=== PATIENT | male | born 1985 | race Caucasian/White ===

== ENCOUNTER 2023-04-01 09:32 | Outpatient (AMB) | payer BC, SELFPAY ==
--- NOTE | 2023-04-01 09:35 | MHC.OFFWIV ---
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 Denies ear ache, sore throat, headaches. Denies nausea, vomiting, diarrhea Mother has been sick with same Patient requesting work note PFSH Social History Patient Tobacco Use Status: Never used Tobacco Review of Systems Const All systems reviewed & are unremarkable except as noted in HPI and below Physical Exam Vital Signs: Last Vital Signs Temp 97.6 F 04/01/23 09:57 Pulse 88 04/01/23 09:57 BP 124/86 04/01/23 09:57 Pulse Ox 99 04/01/23 09:57 Oxygen Delivery Method Room Air 04/01/23 09:57 BMI result Body Mass Index 34.6 General: awake, alert, oriented. Answers questions appropriately. Fully engaged in examination. Skin: warm, dry, intact HEENT: TMs intact bilaterally, without erythema or exudate. Posterior pharynx without erythema or exudate. Sclera without icterus or injection. Cardiac: External chest normal in appearance. Respiratory: +cough. LSCTAB. Abdomen: without gross distension. Neurological: Oriented to person, place, time and situation. Thought process intact. Psychiatric: Appropriate mood and affect. Good judgment and insight. Assessment & Plan Assessment & Plan (1) URI (upper respiratory infection): Code(s): J06.9 - Acute upper respiratory infection, unspecified Plan URI, no abx warranted. Benzonatate 100mg po bid as needed Rest, drink plenty of fluids, tylenol or motrin as needed. Work note provided Follow up with pcp or in clinic for any new or worsening symptoms. Go to ER for shortness of breath, chest pain, palpitations, weakness, dizziness. Medications: New benzonatate 100 mg PO BID PRN 20 caps 0RF cough Coding Level of Care Code New Pt Level 4 (58088) Diagnoses URI (upper respiratory infection) J06.9
[2023-04-01 09:57] VITALS: BP 124/86; PULSE 88; TEMP 36.4; O2SAT 99; BMI 34.6
== END 2023-04-01 10:59 | disposition home or self-care (01) ==
PROVIDERS: PCP Nurse Practitioner Family; Visit Provider Registered Nurse Emergency
DX: J06.9 Acute upper respiratory infection, unspecified (principal)
CPT/HCPCS: 99204

== ENCOUNTER 2023-04-09 08:07 | Outpatient (AMB) | payer BC, SELFPAY ==
[2023-04-09 08:26] VITALS: BP 120/80; PULSE 103; TEMP 36.3; O2SAT 97; BMI 34.3
--- NOTE | 2023-04-09 08:26 | MHC.OFFWIV ---
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 He was last seen 8 days ago in the walk-in clinic for upper respiratory illness symptoms, which include sore throat, cough, headache. He was around his mother who was sick as well. He was given benzonatate. Today he has similar symptoms but states he developed a fever this morning. He has not taken any medication for relief. Denies chest pain, shortness a breath, dizziness, numbness, nausea, vomiting, diarrhea. Will obtain upper respiratory swab. Patient has been instructed to utilize [id number]-[id number] medication for symptom relief. [facility] Social History Patient Tobacco Use Status: Never used Tobacco Review of Systems Const Details: Constitutional : No Weight loss, Admits Fever, No Chills, Admits Fatigue, No Malaise ENT/Mouth : Admits sore throat, No Rhinorrhea Eyes: No Eye Pain, No Swelling, No Redness Cardiovascular : No Chest Pain, No SOB, No Dyspnea on Exertion, No Orthopnea, No Edema, No Palpitations Respiratory : Admits Cough, No Sputum, No Wheezing Gastrointestinal : No Nausea, No Vomiting, No Diarrhea, No Constipation, No abdominal Pain, No Hematochezia, No Melena Neuro : No Weakness, No Numbness, No Dizziness, No Headache All other systems reviewed and are negative Physical Exam Vital Signs: Last Vital Signs Temp 97.4 F 04/09/23 08:26 Pulse 103 H 04/09/23 08:26 BP 120/80 04/09/23 08:26 Pulse Ox 97 04/09/23 08:26 Oxygen Delivery Method Room Air 04/09/23 08:26 BMI result Body Mass Index 34.3 Const Other: Appearance: Alert.? Oriented X3.? No acute distress.? Eyes: Pupils equal, round and reactive to light.? ENT: Pharynx normal.?TM intact and pearly gregg. Neck: Normal inspection.? Neck supple.?Full ROM CVS: Normal heart rate and rhythm.? Pulses normal.? Respiratory: No respiratory distress.? Breath sounds normal.? Neuro: Oriented X 3.? No motor deficit.? No sensory deficit. CN 2-12 intact Assessment & Plan Assessment & Plan (1) URI (upper respiratory infection): Comment: Obtained in office upper respiratory swab. Patient has been instructed to use [id number] Tylenol cold and flu. He has been instructed to drink plenty of fluids. He has been educated on signs of worsening symptoms and when to report back to the walk-in or when to present to the ER. Code(s): J06.9 - Acute upper respiratory infection, unspecified Qualifiers: URI type: unspecified URI Qualified Code(s): J06.9 - Acute upper respiratory infection, unspecified Plan: Take your medications as prescribed. If you were prescribed antibiotics today, it is important that you take your medication to their entirety, do not skip any doses, do not finish them early. Follow-up with your primary care provider this week. Return to the emergency department with new or worsening symptoms. Such as fevers, chills, chest pain, shortness of breath, nausea, vomiting, dizziness, headache, vision changes, lethargy In case of emergency call 911 Orders: Orders SARS-CoV2/FLU/RSV Today J06.9 - Acute upper respiratory infection, unspecified Patient Instructions: Patient got no for work. Needs to follow-up with PCP. Coding Level of Care Code Est Pt Level 3 (84429) Diagnoses Upper respiratory tract infection, unspecified type J06.9 URI type: unspecified URI Time Spent (min) 25
== END 2023-04-09 09:12 | disposition home or self-care (01) ==
PROVIDERS: PCP Nurse Practitioner Family; Visit Provider Nurse Practitioner Primary Care
DX: J06.9 Acute upper respiratory infection, unspecified (principal)
CPT/HCPCS: 99213

== ENCOUNTER 2023-04-09 10:28 | Outpatient (REF) | payer BC, SELFPAY ==
[2023-04-09 11:33] LABS: Influenza A PCR NEGATIVE (Negative); Influenza B PCR NEGATIVE (Negative); Resp Syncy Virus RNA Qual PCR NEGATIVE (Negative); SARS COV2 PCR INHOUSE NEGATIVE (Negative)
== END 2023-04-09 10:29 | disposition home or self-care (01) ==
LOC: HO.LNP 10:28
PROVIDERS: Visit Provider Nurse Practitioner Primary Care
DX: Z11.52 Encounter for screening for COVID-19 (principal); J06.9 Acute upper respiratory infection, unspecified
CPT/HCPCS: 0241U

== ENCOUNTER 2024-08-31 15:10 | Outpatient (AMB) | payer BC, SELFPAY ==
--- NOTE | 2024-08-31 15:05 | MHC.PC.OV ---
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 Accompanied by: Self / Same As Patient Allergies seasonal Allergy (Mild, Uncoded 08/31/24 15:30) Unknown Medication List - Last Reconciled 08/31/24 by Gayla Go PA-C clonidine HCl 0.1 mg PO BID PRN Tobacco use date assessed: 08/31/24 Dental Screening Dental Screen Date: 08/31/24 Did you have a dental visit in the last 12 months?: Yes Did you have a dental problem in the last 6 months where you did not have access to dental care?: No Was dental information given to patient?: Patient has dentist HPI establish care HPI Details The patient is a 38-year-old male presenting for a new patient appointment, annual physical examination and preventative care. He has not seen a primary care provider in four to five years. The patient reports a history of anxiety for which he is currently taking clonidine 0.1 mg daily. He last filled his prescription three months ago through [facility]. He denies any recent relapse of substance use and has been clean for a significant period. The patient has a history of Gastroesophageal Reflux Disease (GERD) and takes Prilosec as needed. He also reports seasonal allergies for which he takes Claritin. There is no family history of colon cancer, and he denies any symptoms such as black or bloody stools or unintentional weight loss. His mother had a heart attack at the age of 67. Social History - Substance Use: History of substance use disorder, currently in remission. - Family History: Mother had a heart attack at age 67. [facility] Medical History (Updated 08/31/24 @ 16:10 by Gayla Go PA-C) Annual physical exam Preventative health care Seasonal allergies GERD (gastroesophageal reflux disease) Family history of myocardial infarction Obesity (BMI 35.0-39.9 without comorbidity) History of substance abuse Anxiety Establishing care with new doctor, encounter for Family History Father Alcohol abuse Mother Heart attack Social History Housing: House Alcohol intake: current Alcohol intake frequency: holidays/special occasions only Patient Tobacco Use Status: Former Tobacco user e-Cigarette/Vaping Use: Currently Using service: No Current occupational status: employed Cognitive needs: No Hearing needs: No Vision needs: No Questionnaire PHQ-9 Over the last 2 weeks, how often have you been bothered by any of the following problems? 1. Little interest or pleasure in doing things: not at all 2. Feeling down, depressed, or hopeless: not at all 3. Trouble falling or staying asleep, or sleeping too much: not at all 4. Feeling tired or having little energy: not at all 5. Poor appetite or overeating: not at all 6. Feeling bad about yourself - or that you are a failure or have let yourself or your family down: not at all 7. Trouble concentrating on things, such as reading the newspaper or watching television: not at all 8. Moving or speaking so slowly that other people could have noticed. Or the opposite - being so fidgety or restless that you have been moving around a lot more than usual: not at all 9. Thoughts that you would be better off or of hurting yourself in some way: not at all Total score: 0 Depression Screening Interpretation: Negative Depression Screening Done: Yes [id number] - PHQ-9 Billing: Yes Source: Developed by Drs. Curtis Montes, Lauren Quinn, James Wilkerson and colleagues, with an educational myah from [employer]. Thrive Questionnaire Date Thrive assessed: 08/31/24 I am a: Patient What is your living situation today?: I have a steady place to live Within the past 12 months, did the food you bought not last and you didn't have the money to get more?: Never true Within the past 12 months, did you worry whether your food would run out before you got money to buy more?: Never true Do you have trouble paying for medicines?: No Do you have trouble getting transportation to medical appointments?: No Do you have trouble paying your heating and electricity bill?: No Do you have trouble taking care of your child, family member or friend?: No Do you have trouble with day-to-day activities such as bathing, preparing meals, shopping, managing finances, etc.?: No Are you currently unemployed and looking for a job?: No Are you interested in more education?: No Please select the resources that you would like help with: None THRIVE Score: 0 AUDIT C Alcohol Use Questionnaire (AUDIT-C) 1. How often do you have a drink containing alcohol?: Monthly or less 2. How many drinks containing alcohol do you have on a typical day when you are drinking?: 1 or 2 3. How often do you have six or more drinks on one occasion?: Never Total Score: 1 Score Reviewed/Action Taken: No FILIBERTO-7 AMB Questionnaire FILIBERTO-7 Date FILIBERTO - 7 assessed: 08/31/24 Feeling nervous, anxious, or on edge: 0 = Not at all Not being able to stop or control worryin = Not at all Worrying too much about different things: 0 = Not at all Trouble relaxin = Not at all Being so restless that it is hard to sit still: 0 = Not at all Becoming easily annoyed or irritable: 0 = Not at all Feeling afraid as if something awful might happen: 0 = Not at all Total FILIBERTO-7 score (0-4 normal; 5-9 mild; 10-14 moderate; 15-21 severe): 0 Source: Developed by Drs. uCrtis Montes, Lauren Quinn, James Wilkerson and colleagues, with an educational myah from [employer]. FILIBERTO-7 Assessment Billing FILIBERTO-7 Assessment Tool: FILIBERTO-7 Assessment 49625 Review of Systems Const Details: - Gastrointestinal: Denies black or bloody stools, unintentional weight loss. - Cardiovascular: Denies chest pain, dyspnea on exertion. - Respiratory: Denies shortness of breath. - Musculoskeletal: Denies leg swelling, calf pain. Physical exam (Primary Care) Vital Signs: Last Vital Signs Temp 98.1 F 08/31/24 15:08 Pulse 102 H 08/31/24 15:08 Resp 20 08/31/24 15:08 BP 127/77 08/31/24 15:08 Pulse Ox 98 08/31/24 15:08 Oxygen Delivery Method Room Air 08/31/24 15:08 Care Plan Goal for BP management: <140/90 at Goal BMI result Body Mass Index 35.3 BMI Assessment/Plan discussion: High BMI High, discussed plan: lifestyle, weight reduction, dietary, physical activity and alcohol moderation Tobacco/Smoking Status: Tobacco use Status Tobacco use date assessed 08/31/24 08/31/24 15:16 Patient Tobacco Use Status Former Tobacco user 08/31/24 15:16 e-Cigarette/Vaping Use Currently Using 08/31/24 15:16 PHQ-9: PHQ-9 Score PHQ-9: Total score 0 08/31/24 15:16 Depression Screening Interpretation: Negative Thrive Assessment: Date of Thrive Assessment Date Thrive assessed 08/31/24 08/31/24 15:16 Const Other: Appearance: Alert. Oriented X3. No acute distress. Head: Normal external exam. Normocephalic. Atraumatic. Eyes: Pupils are equal, round, and reactive to light. Extraocular movements intact. Conjunctiva and sclera normal. Eyelids normal. Ears: External auditory canal normal. Tympanic membranes normal. Little bit of wax, not much. Throat: Pharynx normal. Uvula midline. Moist mucous membranes. Neck: Normal inspection. Neck supple. Full range of motion. No adenopathy. Thyroid Normal. No meningeal signs. No neck mass noted. Cardiovascular: Normal heart rate and rhythm. Heart sound normal. No murmurs noted. Pulses normal throughout. Slightly tachycardic, likely due to anxiety. Respiratory: No respiratory distress. Painless inspiration. Breath sounds normal. No wheezes/rales/rhonchi noted. Chest nontender. No accessory muscle usage noted or decreased air movement noted. Abdomen: Soft and nontender. Bowel sounds normal in all 4 quadrants. No distention noted. No organomegaly noted. No visible injury noted. No belly pain upon palpation of the liver or pancreas. Back: No costovertebral angle tenderness. Full range of motion noted. Skin: Skin warm and dry. Normal skin color. Normal skin turgor. No rashes/lesions/lacerations noted. Extremities: No lower extremity edema. Extremities exhibit normal range of motion. Extremities nontender. No leg swelling or pain in the calves upon palpation. Neuro: Oriented X 3. No motor deficit. No sensory deficit. Reflexes normal. Coding Level of Care Code Est Pt Level 4 (65476) Est Pt Prev Care 18-39y(02237) Diagnoses Establishing care with new doctor, encounter for Z76. Annual physical exam Z00.00 Anxiety F41.9 Obesity (BMI 35.0-39.9 without comorbidity) E66.9 GERD (gastroesophageal reflux disease) K21.9 Seasonal allergies J30.2 Family history of myocardial infarction Z82.49 Preventative health care Z00.00 Additional Codes PHQ-9 - 46104 - PHQ-9 Billing: Yes ([id number]) FILIBERTO-7 Assessment Billing - FILIBERTO-7 Assessment Tool: FILIBERTO-7 Assessment 65177 ([id number]) Assessment & Plan Assessment & Plan (1) Establishing care with new doctor, encounter for: Code(s): Z76.89 - Persons encountering health services in other specified circumstances Category: Medical (2) Annual physical exam: Code(s): Z00.00 - Encounter for general adult medical examination without abnormal findings Category: Medical (3) Anxiety: Code(s): F41.9 - Anxiety disorder, unspecified Category: Medical Plan: The patient is currently taking clonidine 0.1 mg daily for anxiety management. A refill for a 90-day supply was sent to [facility]. Follow-up in three months to reassess anxiety management and medication efficacy. Condition is chronic and stable continue to monitor. (4) Obesity (BMI 35.0-39.9 without comorbidity): Code(s): E66.9 - Obesity, unspecified Category: Medical Plan: Patient to improve diet and exercise regimen. Condition is chronic and stable continue to monitor. (5) GERD (gastroesophageal reflux disease): Code(s): K21.9 - Gastro-esophageal reflux disease without esophagitis Category: Medical Plan: The patient manages GERD with Prilosec as needed. A prescription for Prilosec was requested. Condition is chronic and stable will continue to monitor. (6) Seasonal allergies: Code(s): J30.2 - Other seasonal allergic rhinitis Category: Medical Plan: The patient takes Claritin for seasonal allergies. Condition is chronic and stable will continue to monitor. (7) Family history of myocardial infarction: Comment: Mother age 67; still alive is 70 now in 2024 Code(s): Z82.49 - Family history of ischemic heart disease and other diseases of the circulatory system Category: Medical (8) Preventative health care: Code(s): Z00.00 - Encounter for general adult medical examination without abnormal findings Category: Medical Plan: Comprehensive blood work was ordered, including CBC, CMP, thyroid function, cholesterol, PSA, and vitamin levels. The patient was instructed to complete fasting blood work and follow up in three months. Plan Plan Patient was informed and verbally consented to the use of an ambient scribe for clinic note documentation during this visit. 1. Anxiety The patient is currently taking clonidine 0.1 mg daily for anxiety management. A refill for a 90-day supply was sent to [facility]. Follow-up in three months to reassess anxiety management and medication efficacy. 2. Gastroesophageal Reflux Disease (Gerd) The patient manages GERD with Prilosec as needed. A prescription for Prilosec was requested. 3. Seasonal Allergies The patient takes Claritin for seasonal allergies. 4. Preventative Care Comprehensive blood work was ordered, including CBC, CMP, thyroid function, cholesterol, PSA, and vitamin levels. The patient was instructed to complete fasting blood work and follow up in three months. I discussed with the patient the importance of completing the ordered blood work to assess overall health, including screening for diabetes, cholesterol levels, and thyroid function. We also reviewed the management of his anxiety with clonidine and the need for regular follow-up to monitor his condition. The patient was advised to continue using Prilosec for GERD and Claritin for seasonal allergies as needed. Orders: Orders Comprehensive [place]. Panel Fast Today Z00.00 - Encounter for general adult medical examination without abnormal findings Complete Blood Count Auto Diff Today Z00.00 - Encounter for general adult medical examination without abnormal findings Hemoglobin A1c Today Z00.00 - Encounter for general adult medical examination without abnormal findings Lipid Panel Today Z00.00 - Encounter for general adult medical examination without abnormal findings Vitamin D 25-OH Total Today Z00.00 - Encounter for general adult medical examination without abnormal findings C Reactive Protein Today Z00.00 - Encounter for general adult medical examination without abnormal findings PSA,Total (Free>4and<10) Today Z00.00 - Encounter for general adult medical examination without abnormal findings TSH reflex Free T4 Today Z00.00 - Encounter for general adult medical examination without abnormal findings Liver Panel Today Z00.00 - Encounter for general adult medical examination without abnormal findings Magnesium Today Z00.00 - Encounter for general adult medical examination without abnormal findings Vitamin B12 and Folate Today Z00.00 - Encounter for general adult medical examination without abnormal findings Medications: New clonidine HCl 0.1 mg PO DAILY 90 tabs 0RF Patient Instructions: - Complete fasting blood work as ordered, ensuring no food or drink for 10-12 hours prior. - Continue taking clonidine 0.1 mg daily for anxiety management. - Use Prilosec as needed for GERD symptoms. - Take Claritin for seasonal allergies as needed. - Schedule a follow-up appointment in three months.
[2024-08-31 15:08] VITALS: BP 127/77; PULSE 102; RESP 20; TEMP 36.7; O2SAT 98; BMI 35.3
== END 2024-08-31 15:42 | disposition home or self-care (01) ==
LOC: HO.HMCSH 15:10
PROVIDERS: PCP Physician Assistant Medical; Visit Provider Physician Assistant Medical
DX: Z00.00 Encounter for general adult medical examination without abnormal findings (principal); K21.9 Gastro-esophageal reflux disease without esophagitis; F41.9 Anxiety disorder, unspecified; Z68.35 Body mass index [BMI] 35.0-35.9, adult; E66.9 Obesity, unspecified; J30.2 Other seasonal allergic rhinitis; Z82.49 Family history of ischemic heart disease and other diseases of the circulatory system; Z76.89 Persons encountering health services in other specified circumstances

== ENCOUNTER → 2024-08-31 15:10 | Outpatient (BNVA) | payer BC, SELFPAY | PROVIDERS: PCP Physician Assistant Medical; Visit Provider Physician Assistant Medical | DX: Z00.00 Encounter for general adult medical examination without abnormal findings (principal); K21.9 Gastro-esophageal reflux disease without esophagitis; J30.2 Other seasonal allergic rhinitis; F41.9 Anxiety disorder, unspecified; E66.9 Obesity, unspecified; Z82.49 Family history of ischemic heart disease and other diseases of the circulatory system; Z76.89 Persons encountering health services in other specified circumstances; Z79.899 Other long term (current) drug therapy | CPT/HCPCS: 96127 ==